=== PATIENT | male | born 1990 | race American Indian/Alaskan Native ===

== ENCOUNTER 2019-12-28 19:48 | Emergency (ER) | payer OTHER ==
[2019-12-28] MEDS ORDERED: Mupirocin Oint 22 GM Tube TOP ONE (19:49)
[2019-12-28] MEDS ORDERED: Doxycycline 100 MG Cap PO ONE (19:49)
[2019-12-28] MEDS ORDERED: Mupirocin Oint 22 GM Tube ONE (20:14)
[2019-12-28] MEDS ORDERED: Doxycycline 100 MG Cap ONE (20:14)
--- NOTE | 2019-12-28 20:17 | EDM.PDOC ---
ED HPI GENERAL MEDICAL PROBLEM - General Chief Complaint: Wound Recheck Stated Complaint: QUARTER SIZE BOILS BOTH LEGS Time Seen by Provider: 12/28/19 20:00 Source of Information: Reports: Patient, RN History Limitations: Reports: No Limitations - History of Present Illness INITIAL COMMENTS - FREE TEXT/NARRATIVE: ED with sores to lower legs x 2 weeks noticing getting worse, has been putting peroxide on areas. Denies injury, Denies hx of previous skin infections. No fever or chills. - Related Data Allergies Allergy/AdvReac Type Severity Reaction Status Date / Time No Known Allergies Allergy Verified 12/28/19 19:58 Home Meds: Home Meds . [No Known Home Meds] 12/28/19 [History] Past Medical History - Past Health History Medical/Surgical History: Denies Medical/Surgical History Social & Family History - Tobacco Use Smoking Status *Q: Never Smoker Second Hand Smoke Exposure: No - Recreational Drug Use Recreational Drug Use: No ED ROS GENERAL - Review of Systems Review Of Systems: Comprehensive ROS is negative, except as noted in HPI. ED EXAM, SKIN/RASH Exam: See Below Exam Limited By: No Limitations General Appearance: Alert, No Apparent Distress, Obese Eye Exam: Bilateral Eye: EOMI Ears: Normal External Exam, Hearing Grossly Normal Throat/Mouth: Normal Inspection, Normal Voice Neck: Full Range of Motion Respiratory/Chest: No Respiratory Distress, Lungs Clear, Normal Breath Sounds Cardiovascular: Regular Rate, Rhythm Extremities: Normal Range of Motion Neurological: Alert, Oriented, Normal Cognition Psychiatric: Normal Affect Skin: Warm, Dry, Wound/Incision (multiple boils to lower ankle at sock line, largest posterior right ankle open light crusting, shallow ulcerations surrounding errythema to ulcers small raised white papule right posterior calf. scattered amaller area left lower leg. ) Associated features: Tenderness Course - Vital Signs Last Recorded V/S: Last Vital Signs Temp 96.4 F L 12/28/19 19:54 Pulse 124 H 12/28/19 19:54 Resp 18 12/28/19 19:54 BP 136/89 12/28/19 19:54 Pulse Ox 97 12/28/19 19:54 Departure - Departure Time of Disposition: 20:12 Disposition: Home, Self-Care 01 Condition: Good Clinical Impression: Boils of multiple sites - Discharge Information *PRESCRIPTION DRUG MONITORING PROGRAM REVIEWED*: No *COPY OF PRESCRIPTION DRUG MONITORING REPORT IN PATIENT TOMASZ: No Instructions: Skin Abscess, [id number] Additional Instructions: wash area 3times daily with soap and water mupirocin ointment three times day to affected areas, cover with dressing doxycycline 100mg one twice daily for 10 days clinic follow up if increased redness swelling tylenol 650mg every 4-6 hours as needed for discomfort Sepsis Event Note - Evaluation Sepsis Screening Result: No Definite Risk - Focused Exam Vital Signs: Vital Signs Temp Pulse Resp BP Pulse Ox 12/28/19 19:54 96.4 F L 124 H 18 136/89 97 Date Exam was Performed: 12/28/19 Time Exam was Performed: 20:12
== END 2019-12-28 20:22 | disposition home or self-care (01) ==
LOC: DL.ED 19:48
DX: L02.426 Furuncle of left lower limb (principal); L02.425 Furuncle of right lower limb
CPT/HCPCS: 87070; 87077; 99283; A9270-GY

== ENCOUNTER 2021-03-16 20:18 | Emergency (ER) | payer OTHER | END 2021-03-16 23:57 | disposition left against medical advice (07) | LOC: DL.ED 20:18 | DX: Z53.21 Procedure and treatment not carried out due to patient leaving prior to being seen by health care provider (principal) ==

== ENCOUNTER 2022-11-01 12:07 | Emergency (ER) | payer MEDICAID, OTHER | END 2022-11-01 14:20 | disposition home or self-care (01) | LOC: DL.ED 12:07 | DX: R09.1 Pleurisy (principal); E66.9 Obesity, unspecified; Z68.39 Body mass index [BMI] 39.0-39.9, adult; Z72.0 Tobacco use | CPT/HCPCS: 71046; 99283; 99284 ==